=== PATIENT | female | born 1995 | race African-American/Black ===

== ENCOUNTER → 2024-11-22 | Emergency (ER) | payer BC ==
[~2024-11-22] VITALS: Ht 149.9 cm; Wt 44.5 kg
[2024-11-22 07:43] VITALS: BP 113/70; O2SAT 99
== END | disposition left against medical advice (07) ==
LOC: ER 07:26
DX: Z53.21 Procedure and treatment not carried out due to patient leaving prior to being seen by health care provider (principal)
CPT/HCPCS: A4606; A4663